=== PATIENT | male | born 1940 | race Caucasian/White ===

== ENCOUNTER 2019-03-28 13:59 | Inpatient (IN) ==
[2019-03-28] MEDS ORDERED: NS 1,000 ML IV ONE (14:45)
[2019-03-28] MEDS ORDERED: TORADOL IV ONE (14:58)
[2019-03-28 15:06] LABS: BASO# 0.11 X1000 (0.0-0.2); BASO% 1.3 % (0.0-0.8); EOS# 0.04 X1000 (0.0-0.7); EOS% 0.5 % (0.0-10.0); HEMATOCRIT 42.4 % (42.0-52.0); HEMOGLOBIN 14.9 g/dL (14.0-18.0); LYMPH# 0.87 X1000 (1.2-3.4); LYMPH% 10.2 % (20.5-51.1); MCHC 35.1 g/dL (33-37); MPV 11.2 FL (7.4-10.4); NEUT# 6.93 X1000 (1.4-6.5); PLT 222 X1000 (130-400); RBC 4.66 XMIL (4.7-6.1); WBC 8.55 X1000 (4.8-10.8)
[2019-03-28 15:59] LABS: AGAP 17; ALB/GLOB RATIO 0.8; ALBUMIN 3.1 g/dL (3.5-5.0); ALKALINE PHOSPHATASE 1301 U/L (32-122); BUN 16 mg/dL (8-22); CALCIUM 9.2 mg/dL (8.8-10.2); CHLORIDE 106 mmol/L (98-107); COSMO 288; CREATININE 0.8 mg/dL (0.7-1.2); ESTIMATED GFR > 60; GLUCOSE 134 mg/dL (70-104); GOT 151 U/L (10-34); GPT 425 U/L (10-44); POTASSIUM 4.7 mmol/L (3.5-5.1); SODIUM 143 mmol/L (136-145); TCO2 20 mmol/L (25-35); TOTAL BILIRUBIN 4.16 mg/dL (0.20-1.00); TOTAL PROTEIN 7.2 g/dL (6.3-8.3)
[2019-03-28] MEDS ORDERED: ATIVAN IM ONE ×2 (17:19→19:31)
--- NOTE | 2019-03-28 17:31 | Diag Imaging Result Doc PS360 ---
EXAM: CT ABD/PELVIS W/IV CONT ONLY INDICATION: abdominal pain TECHNIQUE: This exam was performed using automated exposure control, adjustment of mA or kV according to patient size, and/or use of iterative reconstruction technique. COMPARISON: 01/28/2019 FINDINGS: There is subsegmental atelectasis at the lung bases. The liver is diffusely heterogeneous and the contour is nodular indicating cirrhosis. There are several vague low dense nodular lesions throughout the liver parenchyma. The mildly enhancing nodule in the right hepatic lobe seen on the previous study has not changed significantly. However, there are other nodules that appear larger. For instance, there is a nodule in the left hepatic lobe on image 50 of series 3 that measures up to 1.9 cm axially (1.4 cm previously). These lesions are suspicious for malignancy. There is small volume ascites tracking around the liver and spleen and layering in the pelvis. The gallbladder is distended no definite gallbladder wall thickening is appreciated. There is stable splenomegaly. The pancreas, adrenal glands, and kidneys are essentially unremarkable. The bladder is distended and is grossly unremarkable, otherwise. There is stable prostatomegaly. There is a stable small right inguinal hernia containing fat and a small amount of ascites. The rectal wall appears somewhat thickened diffusely. Consider proctitis. No bowel wall thickening is identified, otherwise. There is a small hiatal hernia. There is no obstructive bowel pattern. There is diffuse mesenteric edema suggesting anasarca. Shotty mesenteric lymph nodes are stable. There is extensive aortoiliac atherosclerotic calcification and stable ectasia. There is nothing to suggest bony metastatic disease on the current study. IMPRESSION: 1.Cirrhosis. 2.Several very vague low dense lesions involving the liver parenchyma, some of which have increased in size slightly and are suspicious for neoplasm. 3.Stable splenomegaly. 4.Somewhat thickened rectal wall suggesting possible proctitis. 5.Fairly small volume ascites. 6.Other incidental/nonacute findings detailed above. Electronically signed by Wilian Edgar 03/28/2019 5:28 PM
[2019-03-28] MEDS ORDERED: ZOSYN 3.375 GM in NS 50 ML IV ONE ×2 (18:01→22:00)
--- NOTE | 2019-03-28 18:02 | PROVIDER DOCUMENTATION ---
This chart was entered by Amaya Mckenzie Scribe, acting as scribe for Quentin White MD. HPI-Abdominal Pain/GI Problem - General Chief Complaint: Abdominal Pain Stated Complaint: ABD PAIN Time Seen by Provider: 03/28/19 13:59 Source: family Allergies/Adverse Reactions: Patient Allergies Allergy/AdvReac Type Severity Reaction Status Date / Time No Known Allergies Allergy Verified 02/05/19 09:50 Home Medications: Home Medication List Medication Instructions Recorded Confirmed Last Taken Type NK [No Home Medications] 02/05/19 02/05/19 Unknown History - History of Present Illness-ABD Nature of Presenting Problems: 78 y/o male presents to ED with severe abdominal pain and constipation, and rectal bleeding onset 1 week ago. Family of pt is at bedside and speaks for the pt due to his advanced dementia. Family reports he has had a few small stools, but no normal ones. Family states he is being treated at [facility] for hepatocellular carcinoma, ascites, and cirrhosis. Pt has 3L of fluid drained on 03/25/19. Family reports daughter is a nurse and tried to disimpact the pt, but was unsuccessful. Pt is alert and nontoxic. Abdominal Pain Onset Location: reports: generalized abdomen Pain Radiation: reports: no radiation Quality of Pain: reports: aching Severity in ED: reports: moderate, severe Onset/Duration: reports: 1 week ago Timing: reports: still present Activities at Onset: reports: none Exposure to sick contacts?: No Modifying Factors: worse with: palpation Associated Symptoms: reports: constipation, other (abdominal pain) Last BM: 1 week ago Dark Stools Present?: reports: none noticed Rectal Bleeding: reports: none Rectal Pain: reports: none Similar Symptoms Previously?: No Recently seen or treated by another doctor?: No Review of Systems - Adult - REVIEW OF SYSTEMS - ADULT Constitutional: denies: chills, fever Eyes: reports: no symptoms reported Ears, Nose, Mouth & Throat: reports: no symptoms reported Cardiovascular: denies: chest pain, palpitations Respiratory: denies: cough, shortness of breath Gastrointestinal: reports: abdominal pain, constipation. denies: diarrhea, nausea, vomiting Genitourinary: reports: no symptoms reported Musculoskeletal: denies: back pain, joint pain Integumentary: reports: no symptoms reported Neurological: denies: dizziness/vertigo, seizure Psychiatric: reports: no symptoms reported Endocrine: reports: no symptoms reported Hematologic/Lymphatic: reports: no symptoms reported Allergic/Immunologic: reports: no symptoms reported All Other Systems: Reviewed and Negative Past History - Adult - PAST MEDICAL HISTORY-ADULT Review of Records: reports: Old Records Reviewed, Nursing Assessment Review, Medications Reviewed Major Childhood Illnesses: reports: denies history Gastrointestinal: reports: cancer (hepatocellular carcinoma), liver disease (cirrhosis), other (ascites) Other Conditions: reports: other cancer (skin) - PRIOR SURGERIES/PROCEDURES Surgical/Procedure History: reports: none - IMMUNIZATION STATUS Childhood Immunizations: See Nurse Assessment Flu Vaccine: See Nurse Assessment - FAMILY HISTORY Family History: reviewed, not pertinent - SOCIAL HISTORY Smoking: quit greater than 1 year Substance Use: none/never Alcohol Use Frequency: never Living Situation: family Physical Exam-General - PHYSICAL EXAM-ADULT Initial Vital Signs Reviewed: Yes - CONSTITUTIONAL General Appearance: appears well, alert, no apparent distress, other (nonverbal; able to follow commands) - EYES Eyes: PERRL/EOMI, pink conjunctivae - HEAD, EARS, NOSE, MOUTH & THROAT HENMT: normocephalic/atraumatic, normal ENT inspection. negative: moist mucous membranes (dry) - NECK Neck: non-tender, full range of motion - RESPIRATORY Respiratory: chest non-tender, lungs clear, normal breath sounds - CARDIOVASCULAR Cardiovascular: normal peripheral pulses, regular rate, rhythm - GASTROINTESTINAL (ABDOMEN) Abdominal Exam: soft, abnormal bowel sounds (hypoactive), distended (mild), tenderness (diffuse) - MUSCULOSKELETAL Back Exam: normal inspection, no CVA tenderness Extremity: normal range of motion, non-tender, normal gait - SKIN Integumentary: normal color, warm/dry - NEUROLOGIC Neurologic: grossly normal, other (nonverbal; able to follow commands) - PSYCHIATRIC Psych/Mental Status: other (nonverbal; able to follow commands) Progress - PLAN OF CARE/RESULTS Progress/Plan/Lab Results: Orders Category Date Time Status Saline Loc NOW Care 03/28/19 14:[address] ABD/PELVIS W/IV CONT ONLY [CT] Stat Exams 03/28/19 14:45 Ordered CBC WITH ELECTRONIC DIFF [HEME] Stat Lab 03/28/19 14:45 Uncollected COMPREHENSIVE METABOLIC PANEL [CHEM] Stat Lab 03/28/19 14:45 Uncollected 0.9% Sodium Chloride Inj [Ns] 1,000 ml Med 03/28/19 14:45 Active IV 999 mls/hr Laboratory Tests 03/28/19 03/28/19 14:16 14:16 WBC 8.55 RBC 4.66 L Hgb 14.9 Hct 42.4 MCV 91.0 MCH 32.0 H MCHC 35.1 RDW Std Deviation 18.0 H Plt Count 222 MPV 11.2 H Immature Gran % (Auto) 0.0 Neut % (Auto) 81.0 H Lymph % (Auto) 10.2 L [place] % (Auto) 7.0 Eos % (Auto) 0.5 Baso % (Auto) 1.3 H Immature Gran # (Auto) 0.00 Neut # (Auto) 6.93 H Lymph # (Auto) 0.87 L [place] # (Auto) 0.60 H Eos # (Auto) 0.04 Baso # (Auto) 0.11 Sodium 143 Potassium 4.7 Chloride 106 Carbon Dioxide 20 L Anion Gap 17 BUN 16 Creatinine 0.8 Estimated GFR/1.73 m2 > 60 BUN/Creatinine Ratio 20 Glucose 134 H Calculated Osmolality 288 Calcium 9.2 Total Bilirubin 4.16 H AST 151 H ALT 425 H Alkaline Phosphatase 1301 H Total Protein 7.2 Albumin 3.1 L Globulin 4.1 Albumin/Globulin Ratio 0.8 A/P: Proctitis and mesenteric anasarca. Hx of HCC and ascites. Fecal impactation, procedure was performed and a large amoutn 3-4 hand fulls of stool removed. mikal admit for IV antibiotics, pain management. Dr Hanson will admit Result Diagrams: 03/28/19 14:16 03/28/19 14:16 - CT/MRI 1 CT Study: Abdomen, Pelvis Impression: Abnormal (FINDINGS: There is subsegmental atelectasis at the lung bases. The liver is diffusely heterogeneous and the contour is nodular indicating cirrhosis. There are several vague low dense nodular lesions througho ut the liver parenchyma. The mildly enhancing nodule in the right hepatic lobe seen on the previous study has not changed significantly. However, there are other nodules that appear larger. For instance, there is a nodule in the left hepatic lobe on image 50 of series 3 that measures up to 1.9 cm axially (1.4 cm previously). These lesions are suspicious for malignancy. There is small volume ascites tracking around the liver and spleen and layering in the pelvis. The gallbladder is distended no definite gallbladder wall thickening is appreciated. There is stable splenomegaly. The pancreas, adrenal glands, and kidneys are essentially unremarkable. The bladder is distended and is grossly unremarkable, otherwise. There is stable prostatomegaly. There is a stable small right inguinal hernia containing fat and a small amount of ascites. The rectal wall appears somewhat thickened diffusely. Consider proctitis. No bowel wall thickening is identified, otherwise. There is a small hiatal hernia. There is no obstructive bowel pattern. There is diffuse mesenteric edema suggesting anasarca. Shotty mesenteric lymph nodes are stable. There is extensive aortoiliac atherosclerotic calcification and stable ectasia. There is nothing to suggest bony metastatic disease on the current study. IMPRESSION: 1.Cirrhosis. 2.Several very vague low dense lesions involving the liver parenchyma, some of which have increased in size slightly and are suspicious for neoplasm. 3.Stable splenomegaly. 4.Somewhat thickened rectal wall suggesting possible proctitis. 5.Fairly small volume ascites. 6.Other incidental/nonacute findings detailed above. Electronically signed by Wilian Edgar 03/28/2019 5:28 PM) - CONSULTS/PCP/HOSPITALIST Notification #1 *Consult/PCP/Hospitalist*: Dr. Hanson Time Discussed: 17:44 Reason/Comments: CT results; fecal impaction; dementia Consult Disposition: Admit Procedures - ADDITIONAL PROCEDURES Additional Procedure: OTHER (Manual fecal disimpaction) Description of Procedure (Other): Fecal disimpactation performed. 3 handfuls of fecal material removed from rectum. Small amount of red fluid was also expressed after removal of fecal material. Pt felt immediate relief and tolerated procedure without complications. Departure - Departure Date of Disposition Decision: 03/28/19 Time of Disposition Decision: 17:45 DIAGNOSIS: Proctitis, Anasarca Disposition: ADMITTED INPATIENT 09 Certified Medical Emergency: Emergent Condition: Stable Additional Freetext Instructions: ED Follow Up Instructions: You have been treated by a care provider in the Emergency Department. These instructions are being provided to you so you can have an understanding of how to care for yourself upon discharge. Upon discharge from the Emergency Department, you are responsible for making arrangements for follow-up care by a physician of your choice. Take all prescribed medications as directed. Return to the Emergency Department immediately for any new or worsening symptoms. You may call the Physician Referral phone number at [phone] to obtain a list of Physicians who are taking new patients. We have examined and treated you today on an emergency basis only. This was not a substitute for, or an effort to provide, complete medical care. In most cases, you must let your doctor check you again. Tell your doctor about any new or lasting problems. We cannot recognize and treat all injuries or illnesses in one Emergency Department visit. If you had special tests, such as X-rays or CT scans, will be reviewed by radiologist and will call you if there are any new suggestions Follow up with primary care provider in 1 to 2 days if no improvement. If you do not have a primary care provider, you need to choose one as soon as possible. Take medicines as prescribed. Monitor for any side effects or adverse events from medications. If any side effect, adverse event or rash develops, or if you suspect any other adverse reaction to the medication, then discontinue the medication immediately and contact clinic /PCP or go to the nearest ER. Narcotic meds / sedative meds instruction - patent advised not to drive, operate any machinery or go into water after taking meds as it may impair mental ability to react to the situation in an appropriate manner. Continue other current medicines. Follow up with PCP within 24-48 hours, or sooner if symptoms worsen or fail to improve. Patient / guardian verbalizes understanding of treatment plan, medication, and side effects and agrees with treatment plan. Patient leaves ER in stable condition and ambulatory state. Return to ER as needed. Discharge instructions reviewed verbally and given to patient in written form. Follow up with primary care provider. Referrals and Follow-Ups: Nicolas Bender DO [Primary Care Provider] - - Critical Care Note This patient required my direct & personal management of CC.: No Attestation - Physician/ EMMANUELLE Attestation Patient care was provided by Advanced Practice Provider:: No The physician spent face to face time with patient:: Yes Advanced Practice Provider documentation review:: Supervising physician onsite and consulted in the evaluation and care of this patient. The physician did have a face to face encounter with the patient. This chart was documented by the indicated scribe, (Amaya Mckenzie Scribe) and accurately reflects the services I performed and decisions made by me, Quentin White MD, as attested by the provider's signature.
[2019-03-28] MEDS ORDERED: FLAGYL 500 MG/NS 500 MG/100 ML IVPB IV SCH (18:15)
[2019-03-28] MEDS ORDERED: ZOFRAN IV PRN (18:45)
[2019-03-28] MEDS ORDERED: ZOSYN 3.375 GM in NS 50 ML IV SCH (19:00)
--- NOTE | 2019-03-28 19:27 | HISTORY AND PHYSICAL ---
CHIEF COMPLAINT: Abdominal pain, constipation. HPI: This is a 78-year-old gentleman with a history of hepatocellular cancer with cirrhosis and ascites. He is followed by [facility] in [place]. He presents with family members complaining of abdominal pain and constipation. Family member state that he has had just very small hard bowel movements over the last week, they tried disimpacting at home as well as fleets enemas to no avail. They stated that over the last 48 hours that he paced the floor hurting, prompting them bring him in. At the patient was very hesitant to come in. He was finally talked into getting help. They did state that he began to have rectal bleeding bright red blood a week ago and of note he underwent a paracentesis on March 25 with 3 L of fluid drained. The patient is nonverbal. He has dementia. He does follow commands but his daughter and sons are at the bedside. They are very active in his care. They answer questions and give history. While in the emergency room he was disimpacted for a large amount of fecal material with red blood following, after this the patient relaxed and went to sleep. PAST MEDICAL HISTORY: Hepatocellular cancer with ascites and cirrhosis. PAST SURGICAL HISTORY: Paracentesis. SOCIAL HISTORY: He was a former smoker. He now has no tobacco, alcohol or illicit drug use. He lives with family members who are very active in his care. ALLERGIES: No known drug allergies. HOME MEDICATIONS: 1. [*] 5 mg p.o. b.i.d. 2. Lenvima 12 mg a day. 3. Zofran 8 mg q.6 hours p.r.n. 4. Oxycodone 15 mg q.6 hours p.r.n. REVIEW OF SYSTEMS: Unable to obtain from the patient due to his mental status. Pertinent positives per the family stated in the HPI. PHYSICAL EXAMINATION: GENERAL: This is a 78-year-old gentleman who is lying in the bed asleep in no distress. VITAL SIGNS: Blood pressure is 164/79 with a heart rate of 95, respirations are 20, temperature is 98.2 degrees with room air saturations 98%. HEENT: Head is normocephalic, atraumatic. Mucous membranes are dry. NECK: Supple. Trachea midline. CARDIOVASCULAR: Regular rate and rhythm. S1 and S2 appreciated. No murmurs. PULMONARY: Breath sounds are clear. No increased work of breathing noted. Chest rises and falls symmetric respiration. GASTROINTESTINAL: Abdomen soft, nondistended, nontender with bowel sounds noted. SKIN: Warm and dry. NEUROLOGIC: The patient moves at random, withdraws from pain. He is nonverbal. LAB: WBC is 8.5 with hemoglobin 14.9, hematocrit 42.4, platelets of 222,000. Sodium 143, potassium 4.7, BUN 18, creatinine 0.8 with a glucose of 134, total bilirubin is 4.1 with AST 151, ALT 425, alkaline phosphatase [address] of the abdomen and pelvis revealed cirrhosis, several very vague low-dense lesions involving the liver parenchyma some of which have increased in size and are suspicious for neoplasm. This is compared to 01/28/2019 scan. Stable splenomegaly, somewhat thickened rectal wall suggesting proctitis, small volume ascites. ASSESSMENT AND PLAN: 1. Abdominal pain, constipation and impaction. Impaction has been removed. The patient does relax now and seems to not be in pain. We will continue to monitor. 2. Hepatocellular carcinoma with ascites and cirrhosis. He is followed by [facility] in [place]. We will contact [facility] in the morning as lesions have increased in size according to the January scan. 3. Rectal bleed. We will consult GI. 4. Proctitis. We will give Levaquin and Flagyl. 5. Elevated ammonia. We will start lactulose b.i.d. 6. Dementia aware. 7. For deep vein thrombosis prophylaxis will use SCDs and gastrointestinal prophylaxis use omeprazole. Will check a CBC, CMP and ammonia in the morning. Further treatments pending hospital course. Dictated by OLU Chan for Neal Gallegos MD cc: OLU Chan MD
[2019-03-28] MEDS ORDERED: CALMOSEPTINE OINTMENT TOP ONE (19:45)
[2019-03-28] MEDS ORDERED: MORPHINE IV ONE (20:41)
[2019-03-28] MEDS ORDERED: LACTULOSE PO SCH (21:00)
[2019-03-28] MEDS: LACTULOSE PO SCH (21:00)
[2019-03-28] MEDS: HALDOL IV PRN (22:10)
[2019-03-28 22:24] LABS: AGAP 10; ALB/GLOB RATIO 0.8; ALBUMIN 2.7 g/dL (3.5-5.0); ALKALINE PHOSPHATASE 1075 U/L (32-122); BUN 18 mg/dL (8-22); CALCIUM 8.7 mg/dL (8.8-10.2); CHLORIDE 111 mmol/L (98-107); COSMO 287; CREATININE 0.8 mg/dL (0.7-1.2); ESTIMATED GFR > 60; GLUCOSE 102 mg/dL (70-104); GOT 118 U/L (10-34); GPT 347 U/L (10-44); POTASSIUM 3.8 mmol/L (3.5-5.1); SODIUM 143 mmol/L (136-145); TCO2 22 mmol/L (25-35); TOTAL PROTEIN 5.9 g/dL (6.3-8.3)
[2019-03-28] MEDS: FLAGYL 500 MG/NS 500 MG/100 ML IVPB IV SCH (22:30)
[2019-03-28] MEDS: LEVAQUIN 500 MG/D5W 500 MG/100 ML IVPB IV SCH (23:36)
[2019-03-29] MEDS: HALDOL IV PRN ×4 (02:49→23:59)
[2019-03-29] MEDS: FLAGYL 500 MG/NS 500 MG/100 ML IVPB IV SCH ×4 (05:10→22:11)
[2019-03-29 05:26] LABS: BASO# 0.06 X1000 (0.0-0.2); BASO% 1.1 % (0.0-0.8); EOS# 0.09 X1000 (0.0-0.7); EOS% 1.7 % (0.0-10.0); HEMATOCRIT 36.5 % (42.0-52.0); LYMPH# 1.15 X1000 (1.2-3.4); LYMPH% 21.7 % (20.5-51.1); MCH 32.3 PG (27-31); MCHC 35.6 g/dL (33-37); MCV 90.6 FL (81-99); MONO# 0.67 X1000 (0.11-0.59); MONO% 12.6 % (1.7-9.3); MPV 10.6 FL (7.4-10.4); NEUT# 3.34 X1000 (1.4-6.5); NEUT% 62.9 % (42.2-75.2); PLT 164 X1000 (130-400); RBC 4.03 XMIL (4.7-6.1); RDW 16.8 % (11.5-14.5); WBC 5.31 X1000 (4.8-10.8)
[2019-03-29] MEDS ORDERED: PRILOSEC PO SCH (07:00)
[2019-03-29 08:33] LABS: AGAP 11; ALB/GLOB RATIO 0.9; ALBUMIN 2.8 g/dL (3.5-5.0); ALKALINE PHOSPHATASE 1165 U/L (32-122); BUN 21 mg/dL (8-22); CALCIUM 9.1 mg/dL (8.8-10.2); CHLORIDE 110 mmol/L (98-107); COSMO 293; CREATININE 0.8 mg/dL (0.7-1.2); ESTIMATED GFR > 60; GLUCOSE 97 mg/dL (70-104); GOT 131 U/L (10-34); GPT 379 U/L (10-44); SODIUM 146 mmol/L (136-145); TCO2 25 mmol/L (25-35); TOTAL BILIRUBIN 4.24 mg/dL (0.20-1.00)
--- NOTE | 2019-03-29 08:55 | PROGRESS NOTE ---
DATE: 03/29/2019 SUBJECTIVE: This patient is lying comfortably in bed. He is sleepy, but arousable. He is not talking or following commands for me. I am not quite sure if this patient is non verbal due to dementia or is just hepatic encephalopathy. In the emergency department, 3 to 4 hand full of stool were removed to disimpact the patient. He has been placed on lactulose 3 times a day. He has rectal bleed and gastroenterology department has been consulted. Vital signs are stable. Pending CMP today. CBC stable as well. OBJECTIVE: Vital Signs: Temperature 98.3 degrees, pulse 78, respiratory rate 13, blood pressure 106/60, and oxygen saturation 97% on room air. HEENT: Head normocephalic. No trauma. PERRLA. Neck: Supple. No JVD. No masses. Central trachea. Chest: Decreased breath sounds at the bases. Cardiovascular: RRR. Abdomen: Soft. Mild to moderately distended, but soft. Positive bowel sounds. Extremities: No clubbing or cyanosis. Neurological: This patient is sleepy, but arousable. He is not following commands. He is not talking to me or answering any of my questions. I am not quite sure if this patient is non verbal or it's just advanced dementia, or hepatic encephalopathy. LABORATORY: WBC 5.3, hemoglobin 13, hematocrit 36.5, and platelets 164,000. ASSESSMENT AND PLAN: 1. Abdominal pain, distention, constipation with impaction. In the emergency department, 3 to 4 handful of stool were removed. His abdomen seems to be a little bit more soft compared with yesterday. I do not have any bowel movement documented, but he has been placed on lactulose 3 times a day. 2. Encephalopathy, which can be related to dementia or hepatic encephalopathy. I am not quite sure if this patient is nonverbal. I will discuss this with the family. We will continue to monitor this patient. 3. Hepatocellular carcinoma with ascites and liver cirrhosis. He does have an oncologist, and I believe [facility] [employer] [facility] also in [place]. We will continue with the same management for now. Gastroenterology Department has been consulted. 4. Rectal bleed. Gastroenterology Department consulted. 5. Proctitis. I have started this patient on Levaquin and Flagyl. We will monitor. 6. Elevated ammonia. Continue with lactulose 3 times a day. 7. Dementia aware. 8. Deep vein thrombosis prophylaxis with SCD's due to his GI bleed, GI prophylaxis with proton pump inhibitors. cc: Neal Gallegos MD
[2019-03-29] MEDS ORDERED: LACTULOSE PO SCH (09:00)
[2019-03-29] MEDS: LACTULOSE PO SCH ×3 (09:01→16:44)
[2019-03-29] MEDS ORDERED: SODIUM CHLORIDE 0.9% INJ SCH (09:45)
[2019-03-29] MEDS ORDERED: HALDOL IV ONE (11:15)
[2019-03-29 14:19] LABS: URINE SOURCE CATH
[2019-03-29 14:30] LABS: BILIRUBIN URINE SMALL (NEGATIVE); BLOOD URINE TRACE (NEGATIVE); COLOR ORANGE; GLUCOSE URINE NEGATIVE (NEGATIVE); KETONE URINE TRACE mg/dL (NEGATIVE); LEUKOCYTES URINE NEGATIVE (NEGATIVE); NITRITE URINE NEGATIVE (NEGATIVE); PROTEIN URINE 30 mg/dL (NEGATIVE); TURBIDITY URINE CLEAR (CLEAR); UROBILINOGEN URINE 12 mg/dL (NORMAL)
[2019-03-29] MEDS: PROTONIX IV SCH (14:31)
[2019-03-29 14:32] LABS: UR EPITHELIAL CELLS <10 /HPF (<10); URINE BACTERIA NEGATIVE /HPF; URINE RBC <10 /HPF (<10); URINE WBC <10 /HPF (<10)
--- NOTE | 2019-03-29 17:35 | GASTROENTEROLOGY CONSULTATION ---
DATE: 03/29/2019 REASON FOR CONSULTATION: Abdominal pain, constipation. HISTORY OF PRESENT ILLNESS: This is a 78-year-old male who is known to our practice. He was last seen in our office on 02/09/2019. The patient had been referred for evaluation of possible hepatocellular carcinoma. He has been following with Dr. Turcios in [place]. We had not seen the patient since he has seen Dr. Turcios. I believe he was started on chemotherapy. I do not have any records available at the present time. Apparently, the patient came in with abdominal pain and increased constipation. He did have disimpaction in the emergency room. At the time of my evaluation, the patient was not able to assist with review of systems. He was confused. He was in 4 point restraints. There was no family at the bedside. The patient had received a paracentesis on 02/23/2019 with 3.75 L removed. The patient has not been seen back in our office since 02/09/2019. PAST MEDICAL HISTORY: 1. Cirrhosis of the liver. 2. Newly diagnosed hepatocellular carcinoma. 3. Diabetes. 4. Gastroesophageal reflux disease. 5. Heart disease. 6. Hypertension. 7. History of spondylolysis. 8. History of thrombocytopenia. PAST SURGICAL HISTORY: 1. Recent paracentesis. 2. Colonoscopy in 2018. 3. EGD in 2018. 4. Hemorrhoidectomy. ALLERGIES: No known drug allergies. MEDICATIONS: 1. Marinol 5 mg daily. 2. [place] 5 one every 4 to 6 hours as needed. 3. Lactulose 30 mL twice. 4. Oxycodone 15 mg daily. REVIEW OF SYSTEMS: Per history of present illness. PHYSICAL EXAMINATION: Vital Signs: Temperature 98.9 degrees, pulse 102, respirations 24, blood pressure 160/76. General: The patient was awake but he was not oriented at the time of my evaluation. HEENT: Normocephalic, atraumatic. Mucous membranes were dry. Cardiovascular: Regular rate and rhythm. Respiratory: Lung sounds essentially clear. Abdomen: Soft, nondistended. Positive bowel sounds. Neurologic: The patient was agitated. He was in 4 point restraints. He was not following my commands or answering my questions at the time of my evaluation. DIAGNOSTIC RESULTS: Hematology: WBC 5.31, hemoglobin 13.0, hematocrit 36.5, MCV 90.6, platelets 164,000. Chemistry: Sodium 146, potassium 5.0, chloride 110, CO2 25, BUN 21, creatinine 0.8, glucose 97, calcium 9.1, total bilirubin 4.24, AST 131, ALT 379, alkaline phosphatase 1165, ammonia 44, albumin 2.8. ASSESSMENT AND PLAN: 1. Abdominal pain, impaction, chronic constipation. Impaction was removed. The patient has been restarted on lactulose. Continue current lactulose regimen. Per nurse report, the patient did have 2 small bowel movements this morning. Would repeat an extra dose of lactulose now. 2. Hepatocellular carcinoma with cirrhosis of the liver. Following with Dr. Ochoa in [place]. 3. CT scan showing proctitis. The patient has been started on antibiotics. 4. Elevated ammonia. The patient has been restarted on lactulose. Ammonia level was better today. He is still disoriented with agitation. At the time of my evaluation, he was in 4 point restraints. Recommend an additional lactulose dose. We will continue to follow. Further plans will be made according to his progress. I have discussed this case with Dr. Henriquez who is also seeing the patient. Thank you for the consultation. Dictated by OLU Nettles for Martinez Henriquez MD cc: OLU Díaz MD [facility]
[2019-03-29] MEDS: LEVAQUIN 500 MG/D5W 500 MG/100 ML IVPB IV SCH (19:44)
[2019-03-29] MEDS ORDERED: MORPHINE IV ONE (21:46)
[2019-03-30] MEDS: FLAGYL 500 MG/NS 500 MG/100 ML IVPB IV SCH ×4 (03:41→21:55)
[2019-03-30 05:21] LABS: BASO# 0.06 X1000 (0.0-0.2); EOS# 0.07 X1000 (0.0-0.7); EOS% 1.1 % (0.0-10.0); HEMATOCRIT 36.7 % (42.0-52.0); HEMOGLOBIN 13.2 g/dL (14.0-18.0); LYMPH# 0.92 X1000 (1.2-3.4); LYMPH% 15.1 % (20.5-51.1); MCV 88.9 FL (81-99); MONO# 0.79 X1000 (0.11-0.59); MPV 10.2 FL (7.4-10.4); NEUT# 4.25 X1000 (1.4-6.5); NEUT% 69.8 % (42.2-75.2); PLT 173 X1000 (130-400); RBC 4.13 XMIL (4.7-6.1); RDW 16.4 % (11.5-14.5); WBC 6.09 X1000 (4.8-10.8)
[2019-03-30 06:01] LABS: AGAP 14; ALB/GLOB RATIO 0.9; ALKALINE PHOSPHATASE 1142 U/L (32-122); BUN 17 mg/dL (8-22); CALCIUM 8.6 mg/dL (8.8-10.2); CHLORIDE 110 mmol/L (98-107); COSMO 288; CREATININE 0.6 mg/dL (0.7-1.2); ESTIMATED GFR > 60; GLUCOSE 100 mg/dL (70-104); GOT 149 U/L (10-34); GPT 383 U/L (10-44); POTASSIUM 3.5 mmol/L (3.5-5.1); SODIUM 144 mmol/L (136-145); TCO2 20 mmol/L (25-35); TOTAL BILIRUBIN 5.57 mg/dL (0.20-1.00); TOTAL PROTEIN 6.4 g/dL (6.3-8.3)
[2019-03-30] MEDS: LACTULOSE PO SCH ×3 (08:05→20:40)
[2019-03-30] MEDS: PROTONIX IV SCH ×2 (09:55→11:28)
[2019-03-30] MEDS: HALDOL IV PRN ×3 (09:59→21:54)
[2019-03-30] MEDS ORDERED: NORCO-5 PO PRN (10:53)
[2019-03-30] MEDS: OXYCONTIN PO SCH (11:03)
[2019-03-30] MEDS ORDERED: MOVANTIK PO ONE (12:01)
--- NOTE | 2019-03-30 12:33 | PROGRESS NOTE ---
DATE: 03/30/2019 SUBJECTIVE: The patient seems agitated in bed today. He is somewhat confused, which I think is a change from baseline but has not been a change for the last several days. He does answer questions intermittently but not appropriately. He is not oriented, but he does open his eyes and track. OBJECTIVE: Blood pressure is 150/73, heart rate of 88, respiratory rate of 22, temperature 98.1 degrees, 99% on room air. Cardiovascular: Regular rate and rhythm. Pulmonary: Bilateral breath sounds clear to auscultation. GI: Soft. He was somewhat distended. No pain. No tenderness noted. Laboratory Data: White count 6, hemoglobin and hematocrit 13 and 36, platelets of 173,000. T- bilirubin is up to 5.5 with an AST and ALT of 149 and 383 which is not a big increase but he does have an increase in his total bilirubin. PROBLEM LIST: 1. Abdominal pain, fecal impaction. That seems to be resolving. It is probably related to his cancer and his chronic narcotic use. He will need to be on an aggressive bowel regimen. He is on lactulose currently. 2. Encephalopathy, for which a good component is likely hepatic. His ammonia level has improved but I still think he has some component of hepatic encephalopathy. 3. Hepatocellular carcinoma with cirrhosis, ascites. Gastroenterology is following. We are going to continue supportive management. 4. Proctitis and rectal bleeding. He is on Levaquin and Flagyl. Continue to monitor. Flagyl should cover as far as antibiotics for hepatic encephalopathy. 5. Dementia. Aware of diagnosis. 6. Disposition. I am going to try to advance his diet and see how he does. We will need to work on getting him out of restraints and follow closely. Disposition pending his clinical status. cc: Amadeo Ramachandran MD
--- NOTE | 2019-03-30 14:07 | GASTROENTEROLOGY PROGRESS NOTE ---
DATE: 03/30/2019 SUBJECTIVE: Patient is still in 4-point restraints. He is still confused although he did answer questions more appropriately than yesterday. OBJECTIVE: Vital Signs: Temperature 98.3 degrees, pulse 86, respirations 24, blood pressure 171/78. General: Patient is awake, in 4-point restraints, is confused but does answer some questions. No family is at the bedside. Per intake and output report he has had 1 loose stool today. LABORATORY: Hematology. WBC 6.09, hemoglobin 13.2, hematocrit 36.7, MCV 88.9. Chemistry. Sodium 144, potassium 3.5, chloride 110, CO2 20, BUN 17, creatinine 0.6, glucose 100, calcium 8.6, total bilirubin 5.57, AST 149, ALT 383, alkaline phosphatase 1142. ASSESSMENT AND PLAN: 1. Encephalopathy. Continue lactulose. 2. Hepatocellular carcinoma with cirrhosis of the liver. Following with Dr. Turcios in [place]. 3. Chronic constipation and impaction. Continue lactulose. 4. CT scan showing proctitis. Continue antibiotics. Will continue to follow and further plans will be made according to his progress. I have discussed this case with Dr. Henriquez. Further plans will be made as needed. Dictated by OLU Nettles for Martinez Henriquez MD cc: OLU Díaz MD
[2019-03-30] MEDS: OXY IR PO PRN ×2 (17:58→21:54)
[2019-03-30] MEDS: LEVAQUIN 500 MG/D5W 500 MG/100 ML IVPB IV SCH (20:39)
[2019-03-30] MEDS: CLINIMIX E 4.25%-5% SOLUTION 1,000 ML IV SCH (20:40)
--- NOTE | 2019-03-30 21:41 | HEMO/ONC CONSULTATION ---
DATE: 03/29/2019 REASON FOR CONSULTATION: Patient with history of hepatocellular carcinoma, recently on therapy with Lenvima, routinely monitored and managed per Dr. Landon Turcios at [facility] in [place]. HISTORY OF PRESENT ILLNESS: Thank you for the consult. Mr. Kumar is a 78-year-old gentleman known to [facility], with history of hepatocellular carcinoma, most recently on therapy with Lenvima, management per Dr. Landon Turcios at [facility] location. The patient was most recently seen in clinic on 03/26/2019 at which time he was found to have worsening confusion. Lenvima was stopped at that time with plans to allow treatment break for washout and consideration of Nexavar as next line of therapy. Patient had MRI of the brain and CT of the head on 03/22/[address] [facility] clinic revealing no acute abnormalities. Patient admitted at his visit on 03/26/2019 that the patient had not been taking the lactulose as directed and was complaining of symptoms of constipation. Ammonia level was drawn, and family was encouraged to treat patient with lactulose as directed. He was planned for follow-up on 03/29/2019, however, reported to [facility] on 03/28/2019 at which time family members reported progressive abdominal pain and constipation. Patient also reported that he developed bright red blood, intermittently, onset approximately 1 week earlier. While in the emergency room, he was examined, diagnosed with impaction, with removal of large amount of fecal material with red blood noted. The patient did seem to have relief followed by relaxation and sleep. He was admitted for further evaluation and treatment accordingly. ALLERGIES: No known drug allergies. PAST MEDICAL HISTORY: 1. Hepatocellular carcinoma. 2. Cirrhosis. 3. Ascites. 4. Diabetes. 5. GERD. 6. Cardiac disease. 7. Hypertension. PAST SURGICAL HISTORY: 1. Colonoscopy. 2. EGD. 3. Hemorrhoidectomy. 4. Paracenteses. He was tapped him more recently last week with 3 L removed at that time. I do not know the exact date sometime the week of 03/22/2019 through 03/26/2019. MEDICATIONS: Marinol, Udall, lactulose and oxycodone. SOCIAL HISTORY: Tobacco none current, previous use noted. Alcohol none. Illicit substance none. REVIEW OF SYSTEMS: Patient is confused at time of visit currently in 4-point restraints with minimal verbalization or communication. Family member at bedside. Recent history information per clinic visit on 03/26/2019 as well as history and physical from admission 03/28/2019. PHYSICAL EXAMINATION: Vital Signs: Afebrile, pulse 78, blood pressure 106/60, respirations 18, oxygen saturation 97% on room air. HEENT: Normocephalic, atraumatic. PERRL. EOMI. Neck: Supple. Heart: S1, S2. Regular rate and rhythm. No murmur, gallop, or rub. Chest: Bilateral breath sounds. Clear to auscultation. Gastrointestinal: Semi-soft, nondistended. Bowel sounds positive. Extremities: Patient is moving all 4 extremities, currently in 4- point restraint. Skin: Clean, warm, dry and intact. Neurological: The patient appears agitated, restless in bed, currently with 4-point restraints in place. Minimal verbalization during visit. LABORATORY DATA: WBC 5.31, hemoglobin 13.0, hematocrit 36.5, platelet count 164,000. Sodium 146, potassium 5.0, chloride 110, CO2 25, BUN 21, creatinine 0.8, glucose 97. IMAGING: CT of the abdomen reveals several low dense lesions involving the liver parenchyma with slight increase in size compared with prior study on 01/28/2019 revealing concerns for neoplasm. ASSESSMENT AND PLAN: 1. Hepatocellular carcinoma, recently on therapy with Lenvima, discontinued on 03/26/2019, secondary to increasing confusion/altered mental status. Plans for treatment break to allow all washout of previous therapy and consideration of Nexavar for next line of therapy pending patient's status. 2. Ascites secondary to #1. Status post recent paracentesis with 3 L ascitic fluid removal at that time. Monitor closely. 3. Encephalopathy, question relation to dementia or underlying hepatocellular carcinoma likely multifactorial, recently elevated ammonia level with family admitting noncompliance with lactulose therapy. Ammonia is improving with return to treatment. Continue to monitor. Recent MRI of the brain and CT of the head performed at [facility] on 03/22/2019 revealed no acute abnormal findings. 4. Elevated ammonia level, improving on lactulose t.i.d. Continue current therapy. Monitor. 5. Rectal bleed. GI consulted. Await evaluation and recommendations. 6. Proctitis, incidental finding on CT, now on therapy with Flagyl and Levaquin per primary team. 7. Deep vein thrombosis prophylaxis. SCDs and PPI only secondary to rectal bleeding. Further recommendations per GI. 8. Abdominal pain and constipation, secondary to impaction, partially removed upon arrival to the emergency department. Patient being treated with lactulose with small amounts of stool output per nursing staff. Continue current therapy and monitor accordingly. Again, thank you for the consultation on this patient, known to Dr. Landon Turcios at [facility] with history of hepatocellular carcinoma, most recently on treatment with Lenvima, discontinued on 03/26/2019 secondary to altered mental status with increasing confusion. We will monitor patient closely during hospitalization with plans for patient to follow up with Dr. Turcios following discharge with further recommendations regarding treatment at that time. Dictated by OLU Hardy for Walt Harrison MD cc: Walt Harrison MD MTD
[2019-03-31] MEDS: FLAGYL 500 MG/NS 500 MG/100 ML IVPB IV SCH (04:36)
[2019-03-31 05:23] LABS: BASO# 0.07 X1000 (0.0-0.2); BASO% 1.3 % (0.0-0.8); EOS# 0.14 X1000 (0.0-0.7); EOS% 2.6 % (0.0-10.0); HEMATOCRIT 37.8 % (42.0-52.0); HEMOGLOBIN 13.2 g/dL (14.0-18.0); LYMPH# 0.93 X1000 (1.2-3.4); LYMPH% 17.1 % (20.5-51.1); MCH 31.7 PG (27-31); MCHC 34.9 g/dL (33-37); MCV 90.6 FL (81-99); MONO# 0.62 X1000 (0.11-0.59); MONO% 11.4 % (1.7-9.3); MPV 10.3 FL (7.4-10.4); NEUT# 3.68 X1000 (1.4-6.5); NEUT% 67.6 % (42.2-75.2); PLT 180 X1000 (130-400); RBC 4.17 XMIL (4.7-6.1); RDW 17.1 % (11.5-14.5); WBC 5.44 X1000 (4.8-10.8)
[2019-03-31 05:47] LABS: AGAP 12; ALB/GLOB RATIO 0.8; ALBUMIN 2.9 g/dL (3.5-5.0); ALKALINE PHOSPHATASE 1147 U/L (32-122); BUN 17 mg/dL (8-22); CALCIUM 8.4 mg/dL (8.8-10.2); CHLORIDE 110 mmol/L (98-107); COSMO 290; CREATININE 0.6 mg/dL (0.7-1.2); ESTIMATED GFR > 60; GLUCOSE 119 mg/dL (70-104); GOT 173 U/L (10-34); GPT 406 U/L (10-44); MAGNESIUM 1.7 mg/dL (1.5-2.7); PHOSPHORUS 2.7 mg/dL (2.7-4.5); POTASSIUM 3.5 mmol/L (3.5-5.1); SODIUM 144 mmol/L (136-145); TCO2 22 mmol/L (25-35); TOTAL BILIRUBIN 6.57 mg/dL (0.20-1.00); TOTAL PROTEIN 6.4 g/dL (6.3-8.3)
[2019-03-31] MEDS: OXY IR PO PRN (06:10)
[2019-03-31] MEDS ORDERED: MOVANTIK PO SCH (07:00)
[2019-03-31] MEDS ORDERED: MIRALAX PO SCH (09:00)
[2019-03-31] MEDS: LACTULOSE PO SCH ×3 (09:57→12:35)
[2019-03-31] MEDS ORDERED: XIFAXAN PO SCH (10:00)
[2019-03-31] MEDS: OXYCONTIN PO SCH (10:00)
--- NOTE | 2019-03-31 11:24 | CONSULTATION ---
DATE OF CONSULTATION: 03/31/2019 Mr. Kumar is 78 years old and I have been consulted because of persistent encephalopathy. History is taken from review of the available hospital record and from discussion at bedside with several family members including daughter. By report, Mr. Kumar was completely intact physically and cognitively, and doing very well for age until several months ago. He had some abdominal complaints, workup and diagnosis of hepatocellular cancer with cirrhosis and ascites. He has had aggressive management of that problem. Over the last few months, family has noticed significant physical decline with weight loss, unsteady gait, at least one documented fall with head injury a few weeks ago. He has had some periods of forgetfulness, sometimes seeming more confused than others. Family has often attributed the increased confusion to temporary pain medication effect. He has had some loss of interest in things. He was walking in his house naked in the night a few weeks ago and seemed more confused then. He has had increased abdominal pain with sense of constipation in the last week. He eventually came to the hospital where impaction was removed and he seemed very quickly more comfortable and slept. He has not seemed recovered mentally since then. He has had some periods of agitation, requiring restraints. He has been afebrile. Presenting ammonia was 78 and that has come down to 35. Liver enzymes are elevated. Home medications include Marinol, hydrocodone, oxycodone, and we do not have urine drug screen this admission. CBC shows mild anemia with normal platelet counts and normal WBC. We do not have PT or PTT reported this admission. Computer record shows PT 15.9 seconds, INR 1.17, PTT 37.1 on 02/23/2019. Family has been aware of bright red blood per rectum and also increased bruising. Medication chart shows haloperidol 2 mg averaging 3-4 doses daily in recent days, last dose about 12 hours before my visit. He has had oxycodone 15 mg daily and additional 5-10 mg of oxycodone p.r.n. daily. He has been afebrile this admission. Systolic blood pressures have ranged mostly 140s-180s but he had some lower blood pressures, 100s-120s, a few days ago. We do not have brain imaging in this system but there is report that he had a CT scan of the head and brain MRI done 03/22/2019 at [facility] in [place]. I believe that was done after the reported fall with head injury. Report from current chart is that those scans were negative. There is comment on the admission note that he was noted to have confusion and that confusion was increased on the 03/26/2019 [facility] outpatient visit. On exam now, Mr. Kumar was mostly asleep. With moderate stimulation, he was awake and alert. He seemed attentive briefly. He did not remain attentive long enough to test language function. He did not follow commands. He did not identify the location. He did name at least one family member correctly at the bedside. When not vigorously involved in conversation, he seemed to be asleep. Head is unremarkable. There is some rigidity in the neck, more consistent with typical age-related degenerative cervical spine problems than with meningismus. Limb tone is symmetric. Plantar response is silent bilaterally. He used all of his limbs purposefully, but not to command. Lateral extraocular movements are full spontaneously and with passive head turning. He vigorously resisted pupil check, keeping his eyes shut tight and I was not able to examine pupillary light reaction. Facial motility is little bit diminished bilaterally, but symmetric. Tongue is midline. IMPRESSION: Global encephalopathy, uncertain etiology. This is likely multifactorial with recent baseline hepatic encephalopathy, possibly some transient effects of his medications, presenting with hyperammonemia which has been corrected. He may have had some contribution to encephalopathy due to sleep deprivation associated with the discomfort that resolved after disimpaction. He slept soundly for a while after that. According to family, he is a little bit more alert and attentive today than yesterday. In light of family's report of improvement, I do not have any urgent suggestion right now. If he continues to improve, we can follow clinically and hope he will recover to baseline. If he develops fever or deteriorates neurologically, we will need to consider brain imaging, possibly EEG, possibly LP. Thanks for asking neurology to see Mr. Kumar. cc: MD RACHELL Fuentes III
[2019-03-31 11:56] VITALS: BP 168/72
[2019-03-31] MEDS: CLINIMIX E 4.25%-5% SOLUTION 1,000 ML IV SCH (12:34)
[2019-03-31] MEDS ORDERED: PRILOSEC PO ONE (12:54)
[2019-03-31] MEDS: PROTONIX IV SCH (13:01)
--- NOTE | 2019-03-31 13:44 | Diag Imaging Result Doc PS360 ---
EXAM: CT HEAD W/O CONTRAST INDICATION: encephalopathy TECHNIQUE: This exam was performed using automated exposure control, adjustment of mA or kV according to patient size, and/or use of iterative reconstruction technique. COMPARISON: None. FINDINGS: There is mild diffuse brain atrophy. There is mild patchy low attenuation in the periventricular and subcortical white matter suggesting mild microangiopathy. There is no definite acute infarct given the limited sensitivity of CT versus MRI. There is no discrete intracranial mass, mass effect, or intracranial hemorrhage. The surrounding soft tissues and bony structures are essentially unremarkable. IMPRESSION: Atrophy and chronic appearing white matter changes. No definite acute intracranial pathology. Electronically signed by Wilian Edgar 03/31/2019 1:42 PM
--- NOTE | 2019-03-31 16:33 | GASTROENTEROLOGY PROGRESS NOTE ---
DATE: 03/31/2019 SUBJECTIVE: At the time of my entrance into the room, the patient was asleep. He had multiple family members at the bedside, who had multiple questions. Per nurse report, patient is not always awake and alert enough to take his oral medications. He did not receive his lactulose or MiraLAX today at the time of my evaluation. During my conversation with the family, the patient did wake up some. He is still disoriented. OBJECTIVE: Vital Signs: Temperature 97.3 degrees, pulse 74, respirations 18, blood pressure 160/72. Generally, patient was in restraints, was asleep at the initial evaluation, and he did wake up when I was still at the bedside. He was still somewhat disoriented. LABORATORY: Hematology: WBC 5.44, hemoglobin 13.2, hematocrit 37.8, platelet 180,000. Chemistry: Sodium 144, potassium 3.5, chloride 110, CO2 of 22, BUN 17, creatinine 0.6, glucose 119, total bilirubin 6.57, AST 173, ALT 406, alkaline phosphatase 1147. ASSESSMENT AND PLAN: 1. Hepatic failure carcinoma. Following with Dr. Turcios in [place]. Per nurse report, I believe Dr. Turcios will be accepting the patient at [facility] in transfer. 2. Encephalopathy. Continue on lactulose when patient is awake enough to take the medication and continue other laxatives. 3. Constipation/impaction. Impaction was removed. Continue on laxative regimen. As noted, I believe Dr. Turcios at [facility] will be accepting the patient there for further management. Gastroenterology will be available during his current hospitalization if needed. I have discussed this case with Dr. Henriquez. Dictated by OLU Nettles for Martinez Henriquez MD cc: OLU Díaz MD
--- NOTE | 2019-03-31 21:42 | DISCHARGE SUMMARY ---
ADMISSION DATE: 03/28/2019 DISCHARGE DATE: 03/31/2019 ADDENDUM: The patient on the day of discharge is still confused. He does wake up and answer questions, though. I could not really get him to do that yesterday, but then he is just right back out and he just will not follow any commands. I did pursue head CT today and Neurology evaluation. Through family input and Dr. Harrison, there was request to be transferred to [place] where his primary oncologist is, which I think is reasonable. I discussed the case with Dr. Turcios. He says that the altered mental status has not been a new diagnosis. I get a sense that he has been doing this off and on for a while. In any case, he agreed to take him in transfer, so we are going to work on transferring. I do think he needs to be on Xifaxan and lactulose continued for his hepatic encephalopathy, which is contributing to his altered mental status, but he has not completed that. Further orders will be per Dr. Turcios, who has accepted him in transfer. cc: Amadeo Ramachandran MD
--- NOTE | 2019-03-31 22:04 | DISCHARGE SUMMARY ---
ADMISSION DATE: 03/28/2019 DISCHARGE DATE: 03/31/2019 PRIMARY CARE PHYSICIAN: Dr. Nicolas Bender. ADMISSION DIAGNOSES: 1. Abdominal pain, constipation and impaction, with impaction removed. 2. Hepatocellular carcinoma with ascites and cirrhosis, followed by [facility] in [place]. 3. Rectal bleed. 4. Proctitis. 5. Elevated ammonia. 6. Dementia. DISCHARGE DIAGNOSES: 1. Abdominal pain with fecal impaction, appears resolving. 2. Encephalopathy, for which a good component is likely hepatic. 3. Hepatocellular carcinoma with cirrhosis and ascites. 4. Proctitis and rectal bleeding. 5. Dementia. HOSPITAL COURSE: This is a 78-year-old male who is followed by [facility] in [place]. He presented with family members complaining of abdominal pain and constipation. The family stated that he had just very small hard bowel movements over the last week. They tried disimpacting at home as well as Fleet enemas, with no good results. For 48 hours prior to arriving he paced the floor, hurting, prompting them to bring him in. He also noted some rectal bleeding of bright red blood a week ago and underwent a paracentesis on 03/25, with 3 L of fluid drained. The patient is nonverbal. He has dementia. He follows commands and his family is very involved in his care. While he was in the emergency room he was disimpacted for a large amount of fecal material with red blood following. After this, the patient relaxed and went to sleep. He was admitted. We consulted GI and Hematology/Oncology. He has required restraints due to increased agitation and pulling at medical devices. His ammonia level has improved with lactulose. He was placed on Levaquin and Flagyl for his proctitis and hepatic encephalopathy. He is now being transferred to [facility] at the request of his physician with [facility]. They will take over care for him for the remainder of his time in the hospital. A 35-minute discharge. Dictated by OLU Coleman for Amadeo Ramachandran MD cc: OLU Coleman MD Jeffrey A. Johnson, DO
[2019-04-01] MEDS ORDERED: PRILOSEC PO SCH (07:00)
== END 2019-03-31 14:42 | disposition short-term general hospital (02) | DRG 441 ==
LOC: SUPCPDRO → ED 13:59 → SUATTDRO 20:15 → EDIPHOLD 20:15 → 3S 03-29 00:05
PROVIDERS: ATTEND Internal Medicine
CPT/HCPCS: 70450; 74177; 80053; 81001; 82140; 83735; 84100; 85025; 96365; 96367; 96372; 96375; 99285; A9270; C9113; J1630; J1885; J1956; J2060; J2270; J2543; J7030; Q9967; S0030; S0164